=== PATIENT | male | born 1965 | race Caucasian/White ===

== ENCOUNTER 2016-05-31 14:05 | Inpatient (IN) | payer MEDICAID ==
[2016-05-31] MEDS ORDERED: Thiamine IV* 100 MG, Folic Acid IV* 1 MG, Multiple Vitamin IV ADULT* 10 ML in NS 0.9% 1... IV ONE (15:40)
[2016-05-31] MEDS ORDERED: NS 0.9% 1000 ML* 1,000 ML IV ONE (15:41)
[2016-05-31 15:56] LABS: Hematocrit 37 % (42-52); Hemoglobin 12.8 g/dl (14.0-18.0); Mean Corpuscular HGB Conc 34 g/dl (31-36); Mean Corpuscular Hemoglobin 30 pg (27-31); Mean Corpuscular Volume 88 fL (80-94); Mean Platelet Volume 8 um3 (7.4-10.4); Red Blood Count 4.26 10^6/ul (4.0-5.4); Red Cell Distribution Width 14 % (10.5-15); White Blood Count 10.2 10^3/ul (3.5-10.8)
[2016-05-31 16:08] LABS: ALT 48 U/L (7-52); AST 81 U/L (13-39); Albumin 3.8 g/dL (3.2-5.2); Alkaline Phosphatase 36 U/L (34-104); Anion Gap 7 mmol/L (2-11); BUN/Creatinine Ratio 16.7 (8-20); Blood Urea Nitrogen 13 mg/dL (6-24); CO2 Carbon Dioxide 26 mmol/L (22-32); Calcium 8.5 mg/dL (8.6-10.3); Chloride 103 mmol/L (101-111); EGFR African American 136.6 (>60); EGFR Non-African American 106.2 (>60); Globulin 2.4 g/dL (2-4); Glucose 99 mg/dL (70-100); Potassium 3.8 mmol/L (3.5-5.0); Sodium 136 mmol/L (133-145); Total Protein 6.2 g/dL (6.4-8.9)
[2016-05-31 16:33] LABS: Acetaminophen < 15 mcg/mL; Alcohol 150 mg/dL (<10); Salicylate < 2.50 mg/dL (<30)
[2016-05-31 16:44] LABS: TSH (Thyroid Stimulating Horm) 0.28 mcIU/mL (0.34-5.60)
[2016-05-31 18:26] LABS: Urine Bacteria Absent (Absent); Urine Bilirubin Negative (Negative); Urine Glucose Negative (Negative); Urine Nitrite Negative (Negative); Urine Sperm Present (Absent)
[2016-05-31 18:33] LABS: Benzodiazepine Urine Screen None Detected (None Detect)
--- NOTE | 2016-05-31 19:48 | ED ---
Ifox Timothy, scribed for Sheldon Vega MD on 05/31/16 at 1909 . Progress - Progress Note Progress Note: Kishore Ellison is a 50 yo male presenting to [facility] with AMS brought in by the police for destruction of property. He was signed out from Dr. Barnes. Per Dr. Barnes, Pt has not been making sense when evaluated. Course/Dx - Course Course Of Treatment: Kishore Ellison is a 50 yo male presenting to [facility] with AMS brought in by the police for destruction of property. He was signed out from Dr. Barnes. He is medically clear for [facility] at 2010. Following the results of his mental health unit evaluation, [place] [facility] [place] - Diagnoses Provider Diagnoses: Alcohol intoxication The documentation as recorded by the scribefox Timothy accurately reflects the service I personally performed and the decisions made by me, Sheldon Vega MD.
[2016-05-31] MEDS ORDERED: Haloperidol TAB* 5 MG ONE (23:53)
[2016-05-31] MEDS ORDERED: QUEtiapine XR TAB* 300 MG ONE (23:53)
[2016-05-31] MEDS ORDERED: Lithium Carbonate TAB* 300 MG ONE (23:53)
[2016-05-31] MEDS ORDERED: Haloperidol TAB* 5 MG PO ONE (23:57)
[2016-05-31] MEDS ORDERED: QUEtiapine XR TAB* 300 MG PO ONE (23:57)
[2016-05-31] MEDS ORDERED: Lithium Carbonate TAB* 300 MG PO ONE (23:57)
[2016-06-01] MEDS ORDERED: Mouth Piece, Nicotine* 1 EACH CARTRIDGE ONE
[2016-06-01] MEDS ORDERED: Nicotine Inhaler* 10 MG AMP ONE (00:02)
[2016-06-01] MEDS ORDERED: LORazepam INJ* 2 MG/ML 1 ML VIAL IM ONE (00:12)
[2016-06-01] MEDS ORDERED: diPHENhydraMINE IV* 50 MG/ML 1 ml VIAL (BENADRYL) IM ONE (00:12)
[2016-06-01] MEDS ORDERED: Haloperidol INJ IV/IM* 5 MG/ML AMP IM ONE (00:12)
[2016-06-01] MEDS ORDERED: diPHENhydraMINE IV* 50 MG/ML 1 ml VIAL (BENADRYL) ONE ×2 (00:14→13:26)
[2016-06-01] MEDS ORDERED: LORazepam INJ* 2 MG/ML 1 ML VIAL ONE ×2 (00:14→13:26)
[2016-06-01] MEDS ORDERED: Haloperidol INJ IV/IM* 5 MG/ML AMP ONE ×2 (00:15→13:27)
[2016-06-01] MEDS ORDERED: Mouth Piece, Nicotine* 1 EACH CARTRIDGE INH SCH (05:39)
[2016-06-01] MEDS ORDERED: Al Hydrox/Mg Hydrox/Simet LIQ* 30 ML UDC PO PRN (05:39)
[2016-06-01] MEDS ORDERED: Acetaminophen TAB* 325 MG PO PRN (05:39)
[2016-06-01] MEDS: Vitamin THERAPEUTIC TAB PO SCH (09:16)
[2016-06-01] MEDS: Lithium Carbonate TAB* 300 MG PO SCH ×2 (09:16→21:49)
[2016-06-01] MEDS: QUEtiapine XR TAB* 300 MG PO SCH (21:49)
--- NOTE | 2016-06-01 22:10 | HP ---
PSYCHIATRIC HISTORY AND PHYSICAL: DATE OF ADMISSION: 06/01/16 CHIEF COMPLAINT: "I see you looking at me, I'm the wizard, I'm the devil." HISTORY OF PRESENT ILLNESS: The patient is a 50-year-old single white male with a history of bipolar disorder and apparent schizophrenia who was brought to the emergency room by the [place] [employer] on the 9.41 status after allegedly trashing his apartment here in [place]. He was intoxicated with a blood alcohol content of 150 and was uncooperative and not answering questions in the emergency room. He was noted to be disorganized, attempting to drink his own urine and speaking in an affected Mosotho accent. He was unwilling or unable to provide history and could not give any collateral contact. Because of his obvious disorganization and psychosis, he was transferred to the behavior health science unit where I am seeing him this afternoon for psychiatric intake. It is notable that prior to my arrival in his room, our recreational therapist entered to evaluate him and he became hostile and lunged at her. Several staff members had to intervene as the patient appeared that he was ready to physically assault this clinician. As I entered his room, he is back in his bed under his covers but as I begin the interview process, he quickly tears the covers off and lunges at me resulting in intervention by several security guards that had escorted me to his room. The patient is screaming non-sequitur statements. At one point, he uses his blanket the way a matador would do, urging the security guards to kenney him as though they were bulls in a bullfight. Later he puts his fingers on his head to make himself appear to be devil and start speaking in a demonic voice that he has been here before and he knows all of us. Stat medications were required and along with the presence of several staff members and security, he did allow us to administer IM Haldol, Benadryl, and Ativan and at this point he has fallen back asleep in his room and is not arousable. The only source of collateral information unfortunately was an old history and physical done in December [address] Lili Elise. There it indicates that his diagnosis is bipolar disorder and that he was stabilized on a combination of lithium and Seroquel XR. PAST PSYCHIATRIC HISTORY: Past psychiatric history again is from an old discharge summary and this indicates that his first hospitalization was at the [facility] and that he has also had past psychiatric admissions at [facility], the [facility], and [facility]. Further hospitalization was at the [facility] prior to that facility closing and that hospitalization was in 1988. He has received followup treatment in the community at [facility] in the past, but it is unclear whether he currently receives treatment from them. The patient has been stabilized in the past on lithium and Seroquel. SUBSTANCE ABUSE HISTORY: The patient indicates that he used to drink heavily but quit, but this is not consistent with the 150 blood alcohol content than he had on presentation. There is some indication from the notes that he smokes cannabis and his urine drug screen is positive for cannabis. There are also notes from the ER indicating that he made a statement to the affect that he had used LSD recently. PAST MEDICAL HISTORY: Medical history appears to be noncontributory. CURRENT MEDICATIONS: He is not on any current medications. FAMILY HISTORY: The patient states that he has several family members with mental illness, but he cannot give any details. SOCIAL HISTORY: The patient states that he is a high school graduate with some college whose college was interrupted by his first psychiatric admission. 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 He has been in retirement before for crimes related to drugs, but the rest of his legal history is uncertain. REVIEW OF SYSTEMS: Unable to be obtained at this point, because the patient is simply uncooperative. Similarly a physical examination could not be performed, although I am reading the emergency room document that indicates that the patient was medically cleared for treatment on our floor. PHYSICAL EXAMINATION VITAL SIGNS: Noted to be stable with the blood pressure of 110/49, heart rate 85, temperature 98.3 degrees Fahrenheit, oxygen saturation 99% on room air, respiratory rate is 16 breaths per minute. MENTAL STATUS EXAM: The patient is a middle-aged white male with stringy unkempt disheveled hair, dressed in patient scrubs. He is wiry, psychomotor agitated. Speech is hyperverbal, over productive with a fake Mosotho accent at times. Mood is agitated with a labile affect. Thought process is disorganized. Thought content is significant for paranoid and persecutory delusions. He denies suicidal or homicidal ideations. He denies auditory or visual hallucinations, but does appear to be responding to internal stimuli. Insight and judgment are clearly impaired given his violent behavior. Cognitively, he is awake and alert, with what would appear to be a low-average intellect. DIAGNOSES: Grapevine I: Unspecified psychotic disorder, rule out bipolar kenisha, severe with psychotic features versus schizoaffective bipolar type, alcohol use disorder. Grapevine II: Deferred. Grapevine III: None. Grapevine IV: Severe housing stressors. Grapevine V: At this time is 20. IMPRESSION: The patient is a 50-year-old single white male with a history of bipolar disorder and psychosis as well as alcohol abuse, who arrives intoxicated to the emergency room with blood alcohol content of 150 who continues to be psychotic, agitated, and violent despite his current sobriety. We will start him on a trial of lithium 300 mg twice daily and Seroquel XR 300 mg at night as this is the medication regimen that he has done well on in the past. We can easily use Haldol 5 mg doses for agitation and anxiety. PLAN: The patient is admitted to the adult behavioral health unit where he is placed on q.15 minute checks for his and others' safety. I would recommend that clinicians be careful of being alone in his presence and we may have to have additional security for the time being until his medications take affect. We will reinitiate lithium and Seroquel and try to get further collateral information, a likely source of this perhaps would be the [facility]. [id number]/[facility] #: [id number] [facility]
[2016-06-01] MEDS: Haloperidol TAB* 5 MG PO PRN (23:21)
[2016-06-02] MEDS: Lithium Carbonate TAB* 300 MG PO SCH ×2 (09:37→21:18)
[2016-06-02] MEDS: Vitamin THERAPEUTIC TAB PO SCH (09:41)
[2016-06-02] MEDS: Haloperidol TAB* 5 MG PO PRN (09:41)
[2016-06-02] MEDS: Nicotine Inhaler* 10 MG AMP INH PRN ×2 (10:01→21:18)
--- NOTE | 2016-06-02 10:43 | ED ---
Vee Starr Matthew, scribed for Reggie Barnes MD on 05/31/16 at 1427 . Altered Mental Status - HPI Summary HPI Summary: A 50 y/o male presents to the ED by police because he was found damaging property. He was violent toward the police officers. Currently, the patient is not making sense and AMS at this point. He seems to be under the influence of drugs or alcohol. Right now he is agitated and not cooperating. The patient is unresponsive to questions. - History Of Current Complaint Chief Complaint: EDMentalHealth Stated Complaint: 941 Time Seen by Provider: 05/31/16 14:17 Hx Obtained From: Patient Onset/Duration: Still Present Timing: Constant Severity Initially: Moderate Severity Currently: Moderate Aggravating Factor(s): Unknown Alleviating Factor(s): Unknown - Allergies/Home Medications Home Medications: Home Medications Unobtainable [Unobtainable] 05/31/16 [History Confirmed 05/31/16] PMH/Surg Hx/FS Hx/Imm Hx Psychiatric History: Reports: Hx Schizophrenia, Hx Bipolar Disorder, Other Psychiatric Issues/Disorders - Hx of psychosis Infectious Disease History: Denies: Traveled Outside the [place] in Last 30 Days - Family History Known Family History: Positive: Unknown - The patient is unresponsive to questions - Social History Alcohol Use: The patient has an alcohol Hx Hx Substance Use: Yes Substance Use Type: Reports: Marijuana Smoking Status (MU): Unknown if Ever Smoked Review of Systems Psychological: Other - AMS All Other Systems Reviewed And Are Negative: No - Comments Additional Review of Systems Comments: A complete ROS is unable to be obtained, because the patient is unresponsive to questions. Physical Exam - Summary Physical Exam Summary: Vital signs: reviewed General: Patient is well develop male who seems to under the influence of alcohol ans possible some recreational drugs. He has episode of agitations and aggressiveness. He seems to be a treat and danger for himself and staff members. HEENT: within normal limits Lungs: CTA B/L CVS: S1 & S2 present. No murmurs appreciated. ABDOMEN: Soft, non-tender. No signs of distention. No rebound no guarding, and no masses palpated. Bowel sounds are normal. EXTREMITIES: FROM in all major joints, no edema, no cyanosis or clubbing. NEURO: Alert agitated. SKIN: Dry and warm Triage Information Reviewed: Yes Vital Signs On Initial Exam: Initial Vitals BP 109/81 05/31/16 14:56 Vital Signs Reviewed: Yes Diagnostics - Vital Signs Vital Signs Temp Pulse Resp BP Pulse Ox 05/31/16 16:30 73 14 111/68 100 05/31/16 16:00 74 13 101/58 100 05/31/16 15:36 76 13 104/65 95 05/31/16 15:30 76 15 101/63 94 05/31/16 15:01 97.8 F 72 16 104/63 95 05/31/16 15:00 70 104/63 93 05/31/16 14:57 85 93 05/31/16 14:56 109/81 - Laboratory Lab Results: Lab Results 05/31/16 05/31/16 05/31/16 Range/Units 15:40 15:40 18:03 WBC 10.2 (3.5-10.8) 10^3/ul RBC 4.26 (4.0-5.4) 10^6/ul Hgb 12.8 L (14.0-18.0) g/dl Hct 37 L (42-52) % MCV 88 (80-94) fL MCH 30 (27-31) pg MCHC 34 (31-36) g/dl RDW 14 (10.5-15) % Plt Count 196 (150-450) 10^3/ul MPV 8 (7.4-10.4) um3 Neut % (Auto) 68.9 (38-83) % Lymph % (Auto) 22.7 L (25-47) % [place]anan % (Auto) 6.8 (1-9) % Eos % (Auto) 1.2 (0-6) % Baso % (Auto) 0.4 (0-2) % Absolute Neuts (auto) 7.0 (1.5-7.7) 10^3/ul Absolute Lymphs (auto) 2.3 (1.0-4.8) 10^3/ul Absolute Monos (auto) 0.7 (0-0.8) 10^3/ul Absolute Eos (auto) 0.1 (0-0.6) 10^3/ul Absolute Basos (auto) 0 (0-0.2) 10^3/ul Absolute Nucleated RBC 0 10^3/ul Nucleated RBC % 0 Sodium 136 (133-145) mmol/L Potassium 3.8 (3.5-5.0) mmol/L Chloride 103 (101-111) mmol/L Carbon Dioxide 26 (22-32) mmol/L Anion Gap 7 (2-11) mmol/L BUN 13 (6-24) mg/dL Creatinine 0.78 (0.67-1.17) mg/dL Est GFR ( Amer) 136.6 (>60) Est GFR (Non-Af Amer) 106.2 (>60) BUN/Creatinine Ratio 16.7 (8-20) Glucose 99 (70-100) mg/dL Calcium 8.5 L (8.6-10.3) mg/dL Total Bilirubin 0.50 (0.2-1.0) mg/dL AST 81 H (13-39) U/L ALT 48 (7-52) U/L Alkaline Phosphatase 36 (34-104) U/L Total Protein 6.2 L (6.4-8.9) g/dL Albumin 3.8 (3.2-5.2) g/dL Globulin 2.4 (2-4) g/dL Albumin/Globulin Ratio 1.6 (1-3) TSH 0.28 L (0.34-5.60) mcIU/mL Urine Color Yellow Urine Appearance Clear Urine pH 6.0 (5-9) Ur Specific [place] 1.006 L (1.010-1.030) Urine Protein Negative (Negative) Urine Ketones Negative (Negative) Urine Blood 1+ H (Negative) Urine Nitrate Negative (Negative) Urine Bilirubin Negative (Negative) Urine Urobilinogen Negative (Negative) Ur Leukocyte Esterase Negative (Negative) Urine WBC (Auto) Trace(0-5/hpf) (Absent) Urine RBC (Auto) 1+(3-5/hpf) H (Absent) Urine Bacteria Absent (Absent) Urine Sperm Present H (Absent) Urine Glucose Negative (Negative) Salicylates < 2.50 (<30) mg/dL Urine Opiates Screen (None Detect) Acetaminophen < 15 mcg/mL Ur Barbiturates Screen (None Detect) Ur Phencyclidine Scrn (None Detect) Ur Amphetamines Screen (None Detect) U Benzodiazepines Scrn (None Detect) Urine Cocaine Screen (None Detect) U Cannabinoids Screen (None Detect) Serum Alcohol 150 H (<10) mg/dL 05/31/16 Range/Units 18:03 WBC (3.5-10.8) 10^3/ul RBC (4.0-5.4) 10^6/ul Hgb (14.0-18.0) g/dl Hct (42-52) % MCV (80-94) fL MCH (27-31) pg MCHC (31-36) g/dl RDW (10.5-15) % Plt Count (150-450) 10^3/ul MPV (7.4-10.4) um3 Neut % (Auto) (38-83) % Lymph % (Auto) (25-47) % [place] % (Auto) (1-9) % Eos % (Auto) (0-6) % Baso % (Auto) (0-2) % Absolute Neuts (auto) (1.5-7.7) 10^3/ul Absolute Lymphs (auto) (1.0-4.8) 10^3/ul Absolute Monos (auto) (0-0.8) 10^3/ul Absolute Eos (auto) (0-0.6) 10^3/ul Absolute Basos (auto) (0-0.2) 10^3/ul Absolute Nucleated RBC 10^3/ul Nucleated RBC % Sodium (133-145) mmol/L Potassium (3.5-5.0) mmol/L Chloride (101-111) mmol/L Carbon Dioxide (22-32) mmol/L Anion Gap (2-11) mmol/L BUN (6-24) mg/dL Creatinine (0.67-1.17) mg/dL Est GFR ( Amer) (>60) Est GFR (Non-Af Amer) (>60) BUN/Creatinine Ratio (8-20) Glucose (70-100) mg/dL Calcium (8.6-10.3) mg/dL Total Bilirubin (0.2-1.0) mg/dL AST (13-39) U/L ALT (7-52) U/L Alkaline Phosphatase (34-104) U/L Total Protein (6.4-8.9) g/dL Albumin (3.2-5.2) g/dL Globulin (2-4) g/dL Albumin/Globulin Ratio (1-3) TSH (0.34-5.60) mcIU/mL Urine Color Urine Appearance Urine pH (5-9) Ur Specific [place] (1.010-1.030) Urine Protein (Negative) Urine Ketones (Negative) Urine Blood (Negative) Urine Nitrate (Negative) Urine Bilirubin (Negative) Urine Urobilinogen (Negative) Ur Leukocyte Esterase (Negative) Urine WBC (Auto) (Absent) Urine RBC (Auto) (Absent) Urine Bacteria (Absent) Urine Sperm (Absent) Urine Glucose (Negative) Salicylates (<30) mg/dL Urine Opiates Screen None detected (None Detect) Acetaminophen mcg/mL Ur Barbiturates Screen None detected (None Detect) Ur Phencyclidine Scrn None detected (None Detect) Ur Amphetamines Screen None detected (None Detect) U Benzodiazepines Scrn None detected (None Detect) Urine Cocaine Screen None detected (None Detect) U Cannabinoids Screen Presumptive positive H (None Detect) Serum Alcohol (<10) mg/dL Result Diagrams: 05/31/16 15:40 05/31/16 15:40 Lab Statement: Any lab studies that have been ordered have been reviewed, and results considered in the medical decision making process. Altered Mental Statu Course/Dx - Course Assessment/Plan: A 50 y/o male presents to the ED by police because he was found damaging property. He was violent toward the police officers. Currently, the patient is not making sense and AMS at this point. He seems to be under the influence of drugs or alcohol. Right now he is agitated and not cooperating. The patient is unresponsive to questions. Blood work WNL except for mild anemia. Potassium of 8.5, TSH of 0.28. Alcohol level of 150. The patient became very aggressive and a threat for himself and the staff therefore the patient was given Benadryl, Haldol and Ativan. The patient was also placed in restraints since he was very agitated. I gave IV fluids for this patient in a banana bag since the patient has a Hx of alcoholism. At this point, the patient is resting comfortable , maintaining a good airway, and await for soberness. Fall migdalia were given. The patient is still on the monitor and vital signs taken every hour. The patient will be signed out to Dr. Vgea for further assessment and treatment. The patient is awaiting soberness, reassessment, and will need a MHE. It appears the patient has a Hx of psychosis. - Diagnoses Differential Diagnosis/HQI/PQRI: Medication Reaction, Metabolic Disorder, Overdose, Other - Alcohol intoxication, polysubstsmce abuse Discharge Diagnoses: Alcohol intoxication Discharge - Discharge Plan Condition: Stable Disposition: OTHER Discharge Disposition Comment: The patient is signed out to Dr. Vega pending MHE. Referrals: No Primary Care Phys,NOPCP [Primary Care Provider] - The documentation as recorded by the Vee vizcaino Matthew accurately reflects the service I personally performed and the decisions made by me, Reggie Barnes MD.
[2016-06-02] MEDS: QUEtiapine XR TAB* 300 MG PO SCH (21:18)
[2016-06-03] MEDS: Lithium Carbonate TAB* 300 MG PO SCH ×2 (08:54→20:50)
[2016-06-03] MEDS: Vitamin THERAPEUTIC TAB PO SCH (08:54)
[2016-06-03] MEDS: Nicotine Inhaler* 10 MG AMP INH PRN ×6 (08:55→22:43)
--- NOTE | 2016-06-03 12:49 | PN ---
Subjective - Subjective Subjective: I had the opportunity to see Mr. Rose today. When asked clinical interview questions, he turned around and asked me the question- e.g.,when I asked him the question "how is your mood?" He responded with "how is your mood? " He did this with several questions. He did acknowledge good sleep, however. Nursing staff report that he is acting bizarre on the unit, but is medication compliant. Denies A/V hallucinations when questioned, re: same, but staff report that at times, he appears to be responding to internal stimuli. Case discussed with Dr. Suarez Objective - Appearance Hygiene: Normal - disheveled - Behavior Psychomotor Activities: Normal Exhibits Abnormal Movement: Yes - Attitude and Relatedness Attitude and Relatedness: Cooperative Eye Contact: Fair - Speech Quality: Unpressured Latencies: Normal Quantity: Copious - Mood Patient's Decription of Mood: "Great" - Affect Observed Affect: Labile Affect Consistent with: Euthymia - Thought Process Patient's Thought Process: Disorganized Thought Content: No Passive Wish, No Suicidal Planning, No Homicidal Ideation, No Paranoid Ideation - Level of Consciousness Level of Consciousness: Alert Orientation: Yes Orientated to Time, Yes Orientated to Place, Yes Orientated to Person - Impulse Control Impulse Control: Impaired - Insight and Judgement Insight and Judgement: Poor Plan - Plan Treatment Plan: Name: ZOE ROSE Birthdate: 1965 [id number] Medications: Current Medications Acetaminophen (Tylenol Tab*) 650 mg PO Q4H PRN PRN Reason: PAIN or TEMP > 101 F Al Hydrox/Mg Hydrox/Simethicone (Maalox Plus*) 30 ml PO Q4H PRN PRN Reason: INDIGESTION Device (Nicotine Mouth Piece*) 1 each INH .[facility] Last Admin: 06/02/16 10:01 Dose: 1 each Haloperidol (Haldol Tab*) 5 mg PO Q6H PRN PRN Reason: AGITATION Last Admin: 06/02/16 09:41 Dose: 5 mg [place] Carbonate ([place] Carbonate Tab*) 600 mg PO BEDTIME [facility] Last Admin: 06/02/16 21:18 Dose: 600 mg [place] Carbonate ([place] Carbonate Tab*) 300 mg PO QAM [facility] Last Admin: 06/03/16 08:54 Dose: 300 mg Multivitamins (Theragran Tab*) 1 tab PO DAILY [facility] Last Admin: 06/03/16 08:54 Dose: 1 tab Nicotine (Nicotine Inhaler*) 10 mg INH Q2H PRN PRN Reason: CRAVING Last Admin: 06/03/16 11:25 Dose: 10 mg Quetiapine Fumarate (Seroquel Xr Tab*) 300 mg PO BEDTIME [facility] Last Admin: 06/02/16 21:18 Dose: 300 mg
[2016-06-03] MEDS: QUEtiapine XR TAB* 300 MG PO SCH (20:50)
[2016-06-04] MEDS: Nicotine Inhaler* 10 MG AMP INH PRN ×5 (07:28→18:06)
[2016-06-04] MEDS: Lithium Carbonate TAB* 300 MG PO SCH ×2 (09:00→20:32)
[2016-06-04] MEDS: Vitamin THERAPEUTIC TAB PO SCH (09:00)
--- NOTE | 2016-06-04 12:15 | PN ---
[facility]: Group Therapy Note - Service Type Service Type: 33841 Group Psychotherapy - Cognitive Behavioral Group Therapy ( CBT):Patient presented in CBT programming as disorganized and disruptive in discussion and needed repeated redirection to attend to presented materials.
--- NOTE | 2016-06-04 17:56 | PN ---
Subjective - Subjective Service Type: 10200 Hosp care 15 min low complexity Subjective: Mr Rose reports doing better having resumed lithium. He denies any active psychiatric symptoms. He continues to present with and adopted accent. Objective - Appearance Appearance: Well Developed/Nourished Dysmorphic Features: No Hygiene: Normal Grooming: Fairly Well Kept - Behavior Psychomotor Activities: Normal Exhibits Abnormal Movement: No - Attitude and Relatedness Attitude and Relatedness: Superficially Cooperative Eye Contact: Good - Speech Quality: Unpressured Latencies: Normal Quantity: Appropriate - Mood Patient's Decription of Mood: "Elated in a subdued sort of way" - Affect Observed Affect: Constricted Affect Consistent with: Euthymia - Thought Process Patient's Thought Process: Coherent, Goal Directed Thought Content: No Passive Wish, No Suicidal Planning - "Of course not." , No Homicidal Ideation - "Of course not.", No Paranoid Ideation - "Of course not." - Sensorium Experiencing Hallucinations: No, Sensorium is Clear Type of Hallucinations: Visual: No, Auditory: No, Command: No - Level of Consciousness Level of Consciousness: Alert Orientation: Yes Intact, Yes Orientated to Time, Yes Orientated to Place, Yes Orientated to Person - Impulse Control Impulse Control: Intact - Insight and Judgement Insight and Judgement: Poor - Group Participation Particating in Group Activities: Yes Group Participation Comments: a few - Medication Management Medication Management Adherence: Yes Assessment - Assessment Merits Inpatient Hospitalization: For Stabilization, For Ongoing Evaluation, Consolidate Improvements, For Discharge Planning, Pending Safe DC Plan Inpatient DSM-IV Dx: Unspecified psychotic disorder. Rule out Bipolar Disorder , Manic with psychotic features. Rule out Schizoaffective Disorder, bipolar type. Alcohol use disorder Clinical Impression: Zoe Rose is a 50 year-old man admitted for psychosis with out of control behavior in the community, trashing his apartment. He remained psychotic and assaultive on the unit, but in recent days has been in behavioral control and med compliant. We will continue to monitor for sufficient remission of psychosis to be safe for discharge. Plan - Plan Treatment Plan: Name: ZOE ROSE Birthdate: 1965 [id number] Continue current meds. Monitor MS and safety. Encourage groups and milieu. Gather collateral. Medications: Current Medications Acetaminophen (Tylenol Tab*) 650 mg PO Q4H PRN PRN Reason: PAIN or TEMP > 101 F Al Hydrox/Mg Hydrox/Simethicone (Maalox Plus*) 30 ml PO Q4H PRN PRN Reason: INDIGESTION Device (Nicotine Mouth Piece*) 1 each INH .[facility] Last Admin: 06/02/16 10:01 Dose: 1 each Haloperidol (Haldol Tab*) 5 mg PO Q6H PRN PRN Reason: AGITATION Last Admin: 06/02/16 09:41 Dose: 5 mg [place] Carbonate ([place] Carbonate Tab*) 600 mg PO BEDTIME [facility] Last Admin: 06/03/16 20:50 Dose: 600 mg [place] Carbonate ([place] Carbonate Tab*) 300 mg PO QAM [facility] Last Admin: 06/04/16 09:00 Dose: 300 mg Multivitamins (Theragran Tab*) 1 tab PO DAILY [facility] Last Admin: 06/04/16 09:00 Dose: 1 tab Nicotine (Nicotine Inhaler*) 10 mg INH Q2H PRN PRN Reason: CRAVING Last Admin: 06/04/16 14:42 Dose: 10 mg Quetiapine Fumarate (Seroquel Xr Tab*) 300 mg PO BEDTIME [facility] Last Admin: 06/03/16 20:50 Dose: 300 mg - Discharge Plan Discharge Plan: Outpatient Follow Up
[2016-06-04] MEDS: QUEtiapine XR TAB* 300 MG PO SCH (20:32)
[2016-06-05] MEDS: Nicotine Inhaler* 10 MG AMP INH PRN ×5 (06:14→23:40)
[2016-06-05] MEDS: Lithium Carbonate TAB* 300 MG PO SCH ×2 (09:06→20:21)
[2016-06-05] MEDS: Vitamin THERAPEUTIC TAB PO SCH (09:06)
--- NOTE | 2016-06-05 13:24 | PN ---
Subjective - Subjective Service Type: 65577 Hosp care 15 min low complexity Subjective: Zoe continues to report full remission of all psychiatric symptoms and has no physical complaints. Objective - Appearance Appearance: Well Developed/Nourished Dysmorphic Features: No Hygiene: Normal Grooming: Fairly Well Kept - Behavior Psychomotor Activities: Normal Exhibits Abnormal Movement: No - Attitude and Relatedness Attitude and Relatedness: Cooperative Eye Contact: Good - Speech Quality: Unpressured Latencies: Normal Quantity: Appropriate - Mood Patient's Decription of Mood: "Excellent" - Affect Observed Affect: Fair Affect Consistent with: Euthymia - Thought Process Patient's Thought Process: Coherent, Goal Directed Thought Content: No Passive Wish, No Suicidal Planning, No Homicidal Ideation, No Paranoid Ideation - Sensorium Experiencing Hallucinations: No, Sensorium is Clear Type of Hallucinations: Visual: No, Auditory: No, Command: No - Level of Consciousness Level of Consciousness: Alert Orientation: Yes Intact, Yes Orientated to Time, Yes Orientated to Place, Yes Orientated to Person - Impulse Control Impulse Control: Intact - Insight and Judgement Insight and Judgement: Fair - Group Participation Particating in Group Activities: Yes - Medication Management Medication Management Adherence: Yes Assessment - Assessment Merits Inpatient Hospitalization: For Stabilization, For Ongoing Evaluation, For Discharge Planning Inpatient DSM-IV Dx: Unspecified psychotic disorder. Rule out Bipolar Disorder , Manic with psychotic features. Rule out Schizoaffective Disorder, bipolar type. Alcohol use disorder Clinical Impression: Assumed care day , 17: Zoe Rose is a 50 year-old man admitted for psychosis with out of control behavior in the community, trashing his apartment. He remained psychotic and assaultive on the unit, but in recent days has been in behavioral control and med compliant. We will continue to monitor for sufficient remission of psychosis to be safe for discharge. Day 06.05.17: Zoe continues to present in a stylized way, but less so. He continues to deny any active psychiatric symptoms. He agrees to blood drqw tomorrow to check lithium level. Plan - Plan Treatment Plan: Name: ZOE ROSE Birthdate: 1965 [id number] Continue current meds. Check Li+, Cr, TSH tomorrow morning. Monitor MS and safety. Encourage groups and milieu. Gather collateral. Medications: Current Medications Acetaminophen (Tylenol Tab*) 650 mg PO Q4H PRN PRN Reason: PAIN or TEMP > 101 F Al Hydrox/Mg Hydrox/Simethicone (Maalox Plus*) 30 ml PO Q4H PRN PRN Reason: INDIGESTION Device (Nicotine Mouth Piece*) 1 each INH .[facility] Last Admin: 06/02/16 10:01 Dose: 1 each Haloperidol (Haldol Tab*) 5 mg PO Q6H PRN PRN Reason: AGITATION Last Admin: 06/02/16 09:41 Dose: 5 mg [place] Carbonate ([place] Carbonate Tab*) 600 mg PO BEDTIME [facility] Last Admin: 06/04/16 20:32 Dose: 600 mg [place] Carbonate ([place] Carbonate Tab*) 300 mg PO QAM [facility] Last Admin: 06/05/16 09:06 Dose: 300 mg Multivitamins (Theragran Tab*) 1 tab PO DAILY [facility] Last Admin: 06/05/16 09:06 Dose: 1 tab Nicotine (Nicotine Inhaler*) 10 mg INH Q2H PRN PRN Reason: CRAVING Last Admin: 06/05/16 09:05 Dose: 10 mg Quetiapine Fumarate (Seroquel Xr Tab*) 300 mg PO BEDTIME [facility] Last Admin: 06/04/16 20:32 Dose: 300 mg - Discharge Plan Discharge Plan: Outpatient Follow Up
[2016-06-05] MEDS: QUEtiapine XR TAB* 300 MG PO SCH (20:21)
[2016-06-06] MEDS: Nicotine Inhaler* 10 MG AMP INH PRN ×8 (02:30→21:02)
[2016-06-06] MEDS: Vitamin THERAPEUTIC TAB PO SCH (09:08)
[2016-06-06] MEDS: Lithium Carbonate TAB* 300 MG PO SCH ×2 (09:08→20:26)
--- NOTE | 2016-06-06 11:46 | PN ---
MHU: Group Therapy Note - Service Type Service Type: 12249 Group Psychotherapy - Cognitive Behavioral Group Therapy ( CBT):Patient presented in CBT programming as disorganized and disruptive in discussion and needed repeated redirection to attend to presented materials.
--- NOTE | 2016-06-06 12:51 | PN ---
Subjective - Subjective Service Type: 04136 Hosp care 15 min low complexity Subjective: Zoe acknowledged today that he scares people with the way he acts, responding to my observation that this would be an indication that he could benefit from acting on compassion toward these people with his own observation that he has a 'slurry' of emotions preventing him from acting appropriately on what he feels is adequate compassion. We have not been able to contact any collateral sources , for example his mother, and it may be, per his report, that he has scared them into getting new phone numbers that they have not shared with him. Refused labwork today rudely telling staff to 'f... off'. Objective - Appearance Appearance: Well Developed/Nourished Dysmorphic Features: No Hygiene: Normal Grooming: Fairly Well Kept - Behavior Psychomotor Activities: Normal Exhibits Abnormal Movement: No - Attitude and Relatedness Attitude and Relatedness: Superficially Cooperative Eye Contact: Good - Speech Quality: Unpressured Latencies: Normal Quantity: Appropriate - Mood Patient's Decription of Mood: "Pretty good" - Affect Observed Affect: Fair Affect Consistent with: Euthymia - but odd - Thought Process Patient's Thought Process: Coherent, Goal Directed, Circumstantial Thought Content: No Passive Wish, No Suicidal Planning, No Homicidal Ideation, No Paranoid Ideation - Sensorium Experiencing Hallucinations: No, Sensorium is Clear Type of Hallucinations: Visual: No, Auditory: No, Command: No - Level of Consciousness Level of Consciousness: Alert Orientation: Yes Intact, Yes Orientated to Time, Yes Orientated to Place, Yes Orientated to Person - Impulse Control Impulse Control: Tenuous - Insight and Judgement Insight and Judgement: Poor - Group Participation Particating in Group Activities: Yes Group Participation Comments: noted by Brianna as inappropriate in her education group - Medication Management Medication Management Adherence: Yes Assessment - Assessment Merits Inpatient Hospitalization: For Stabilization, For Ongoing Evaluation, For Discharge Planning Inpatient DSM-IV Dx: Unspecified psychotic disorder. Rule out Bipolar Disorder , Manic with psychotic features. Rule out Schizoaffective Disorder, bipolar type. Alcohol use disorder Clinical Impression: [facility] care day 4, 17: Zoe Rose is a 50 year-old man admitted for psychosis with out of control behavior in the community, trashing his apartment. He remained psychotic and assaultive on the unit, but in recent days has been in behavioral control and med compliant. We will continue to monitor for sufficient remission of psychosis to be safe for discharge. Day 17: Zoe continues to present in a stylized way, but less so. He continues to deny any active psychiatric symptoms. He agrees to blood drqw tomorrow to check lithium level. Day 06.06.16: Refused blood draw this morning. Continues to deny any active psychiatric symptoms, but with odd presentation raising concern about reliability of reports. Unable to contact mother or other collateral sources. Plan - Plan Treatment Plan: Name: ZOE ROSE Birthdate: 1965 [id number] Continue current meds. Check Li+, Cr, TSH tomorrow morning. Monitor MS and safety. Encourage groups and milieu. Gather collateral. Medications: Current Medications Acetaminophen (Tylenol Tab*) 650 mg PO Q4H PRN PRN Reason: PAIN or TEMP > 101 F Al Hydrox/Mg Hydrox/Simethicone (Maalox Plus*) 30 ml PO Q4H PRN PRN Reason: INDIGESTION Device (Nicotine Mouth Piece*) 1 each INH [facility] Last Admin: 06/02/16 10:01 Dose: 1 each Haloperidol (Haldol Tab*) 5 mg PO Q6H PRN PRN Reason: AGITATION Last Admin: 06/02/16 09:41 Dose: 5 mg [place] Carbonate ([place] Carbonate Tab*) 600 mg PO BEDTIME [facility] Last Admin: 06/05/16 20:21 Dose: 600 mg [place] Carbonate ([place] Carbonate Tab*) 300 mg PO QAM [facility] Last Admin: 06/06/16 09:08 Dose: 300 mg Multivitamins (Theragran Tab*) 1 tab PO DAILY [facility] Last Admin: 06/06/16 09:08 Dose: 1 tab Nicotine (Nicotine Inhaler*) 10 mg INH Q2H PRN PRN Reason: CRAVING Last Admin: 06/06/16 12:02 Dose: 10 mg Quetiapine Fumarate (Seroquel Xr Tab*) 300 mg PO BEDTIME [facility] Last Admin: 06/05/16 20:21 Dose: 300 mg - Discharge Plan Discharge Plan: Outpatient Follow Up Outpatient Program: [facility]
[2016-06-06] MEDS: QUEtiapine XR TAB* 300 MG PO SCH (20:26)
[2016-06-07] MEDS: Nicotine Inhaler* 10 MG AMP INH PRN ×6 (01:15→21:22)
[2016-06-07 08:37] LABS: EGFR African American 111.5 (>60); EGFR Non-African American 86.7 (>60); HDL Cholesterol 71.4 mg/dL
[2016-06-07] MEDS: Lithium Carbonate TAB* 300 MG PO SCH ×2 (09:12→21:22)
[2016-06-07] MEDS: Vitamin THERAPEUTIC TAB PO SCH (09:12)
--- NOTE | 2016-06-07 11:48 | PN ---
MHU: Group Therapy Note - Service Type Service Type: 52747 Group Psychotherapy - Cognitive Behavioral Group Therapy ( CBT):Patient was attentive and participatory in CBT programming this morning, and remained in good behavioral control. Patient expressed positive insights regarding relevant treatment interventions and goals.
[2016-06-07 13:07] LABS: Lithium 0.38 mmol/L (0.6-1.2)
[2016-06-07 13:11] LABS: TSH (Thyroid Stimulating Horm) 1.09 mcIU/mL (0.34-5.60)
--- NOTE | 2016-06-07 17:08 | PN ---
Subjective - Subjective Service Type: 51999 Hosp care 15 min low complexity Objective - Appearance Appearance: Well Developed/Nourished Dysmorphic Features: No Hygiene: Normal Grooming: Disheveled - Behavior Psychomotor Activities: Normal Exhibits Abnormal Movement: No - Attitude and Relatedness Attitude and Relatedness: Guarded Eye Contact: Good - Speech Quality: Unpressured Latencies: Normal Quantity: Appropriate - Mood Patient's Decription of Mood: "Okay" - Affect Observed Affect: Constricted Affect Consistent with: Euthymia - Thought Process Patient's Thought Process: Coherent, Goal Directed Thought Content: No Passive Wish, No Suicidal Planning, No Homicidal Ideation, No Paranoid Ideation - Sensorium Experiencing Hallucinations: No, Sensorium is Clear Type of Hallucinations: Visual: No, Auditory: No, Command: No - Level of Consciousness Level of Consciousness: Alert Orientation: Yes Intact, Yes Orientated to Time, Yes Orientated to Place, Yes Orientated to Person - Impulse Control Impulse Control: Intact - Insight and Judgement Insight and Judgement: Poor - Group Participation Particating in Group Activities: Yes Group Participation Comments: but still declines most - Medication Management Medication Management Adherence: Yes - since last evening Assessment - Assessment Merits Inpatient Hospitalization: For Immediate Safety, For Stabilization, For Ongoing Evaluation, For Discharge Planning, Pending Safe DC Plan Inpatient DSM-IV Dx: Unspecified psychotic disorder. Rule out Bipolar Disorder , Manic with psychotic features. Rule out Schizoaffective Disorder, bipolar type. Alcohol use disorder Clinical Impression: Assumed care day , 06.04.17: Zoe Rose is a 50 year-old man admitted for psychosis with out of control behavior in the community, trashing his apartment. He remained psychotic and assaultive on the unit, but in recent days has been in behavioral control and med compliant. We will continue to monitor for sufficient remission of psychosis to be safe for discharge. Day 5, 18.17: Zoe continues to present in a stylized way, but less so. He continues to deny any active psychiatric symptoms. He agrees to blood drqw tomorrow to check lithium level. Day , 06.06.17: Refused blood draw this morning. Continues to deny any active psychiatric symptoms, but with odd presentation raising concern about reliability of reports. Unable to contact mother or other collateral sources. Plan - Plan Treatment Plan: Name: ZOE ROSE Birthdate: 1965 [id number] Continue current meds. Check Li+, Cr, TSH tomorrow morning. Monitor MS and safety. Encourage groups and milieu. Gather collateral. Medications: Current Medications Acetaminophen (Tylenol Tab*) 650 mg PO Q4H PRN PRN Reason: PAIN or TEMP > 101 F Al Hydrox/Mg Hydrox/Simethicone (Maalox Plus*) 30 ml PO Q4H PRN PRN Reason: INDIGESTION Device (Nicotine Mouth Piece*) 1 each INH .[facility] Last Admin: 06/02/16 10:01 Dose: 1 each Haloperidol (Haldol Tab*) 5 mg PO Q6H PRN PRN Reason: AGITATION Last Admin: 06/02/16 09:41 Dose: 5 mg [place] Carbonate ([place] Carbonate Tab*) 600 mg PO BEDTIME [facility] Last Admin: 06/06/16 20:26 Dose: 600 mg [place] Carbonate ([place] Carbonate Tab*) 300 mg PO QAM [facility] Last Admin: 06/07/16 09:12 Dose: 300 mg Multivitamins (Theragran Tab*) 1 tab PO DAILY [facility] Last Admin: 06/07/16 09:12 Dose: 1 tab Nicotine (Nicotine Inhaler*) 10 mg INH Q2H PRN PRN Reason: CRAVING Last Admin: 06/07/16 15:12 Dose: 10 mg Quetiapine Fumarate (Seroquel Xr Tab*) 300 mg PO BEDTIME [facility] Last Admin: 06/06/16 20:26 Dose: 300 mg
--- NOTE | 2016-06-07 17:21 | PN ---
Subjective - Subjective Subjective: Zoe reports full remission of psychotic symptoms and dangerous intent and plan. He requests discharge. He complains that he has only had one night with 8 hours sleep here. He agrees to increased lithium dose. Objective - Appearance Appearance: Well Developed/Nourished Dysmorphic Features: No Hygiene: Normal Grooming: Disheveled - Behavior Psychomotor Activities: Normal Exhibits Abnormal Movement: No - Attitude and Relatedness Attitude and Relatedness: Somewhat dramatic Eye Contact: Good - Speech Quality: Unpressured Latencies: Normal Quantity: Appropriate - Mood Patient's Decription of Mood: "Excellent" - Affect Observed Affect: Expansive Affect Consistent with: Euthymia - Thought Process Patient's Thought Process: Coherent, Goal Directed Thought Content: No Passive Wish, No Suicidal Planning, No Homicidal Ideation, No Paranoid Ideation - Sensorium Experiencing Hallucinations: No, Sensorium is Clear Type of Hallucinations: Visual: No, Auditory: No, Command: No - Level of Consciousness Level of Consciousness: Alert Orientation: Yes Intact, Yes Orientated to Time, Yes Orientated to Place, Yes Orientated to Person - Impulse Control Impulse Control: Intact - Insight and Judgement Insight and Judgement: Poor - Group Participation Particating in Group Activities: Yes - Medication Management Medication Management Adherence: Yes Assessment - Assessment Merits Inpatient Hospitalization: For Stabilization, For Ongoing Evaluation, Consolidate Improvements, For Discharge Planning Inpatient DSM-IV Dx: Unspecified psychotic disorder. Rule out Bipolar Disorder , Manic with psychotic features. Rule out Schizoaffective Disorder, bipolar type. Alcohol use disorder Clinical Impression: Assumed care day 4, 17: Zoe Rose is a 50 year-old man admitted for psychosis with out of control behavior in the community, trashing his apartment. He remained psychotic and assaultive on the unit, but in recent days has been in behavioral control and med compliant. We will continue to monitor for sufficient remission of psychosis to be safe for discharge. Day 5, 06.05.17: Zoe continues to present in a stylized way, but less so. He continues to deny any active psychiatric symptoms. He agrees to blood drqw tomorrow to check lithium level. Day 6, 06.06.17: Refused blood draw this morning. Continues to deny any active psychiatric symptoms, but with odd presentation raising concern about reliability of reports. Unable to contact mother or other collateral sources. Day 7, 06.07.17: Allowed blood draw this morning. Cr and TSH WNL, with healthy lipid panel: Li+ low at 0.38. Reports feeling anxious due to confinement with poor sleep and request discharge. Plan - Plan Treatment Plan: Name: ZOE ROSE Birthdate: 1965 [id number] Continue current meds. Increase Li+ to 600 mg bid. Monitor MS and safety. Encourage groups and milieu. Team meeting with patient tomorrow. Medications: Current Medications Acetaminophen (Tylenol Tab*) 650 mg PO Q4H PRN PRN Reason: PAIN or TEMP > 101 F Al Hydrox/Mg Hydrox/Simethicone (Maalox Plus*) 30 ml PO Q4H PRN PRN Reason: INDIGESTION Device (Nicotine Mouth Piece*) 1 each INH .[facility] Last Admin: 06/02/16 10:01 Dose: 1 each Haloperidol (Haldol Tab*) 5 mg PO Q6H PRN PRN Reason: AGITATION Last Admin: 06/02/16 09:41 Dose: 5 mg [place] Carbonate ([place] Carbonate Tab*) 600 mg PO BEDTIME [facility] Last Admin: 06/06/16 20:26 Dose: 600 mg [place] Carbonate ([place] Carbonate Tab*) 300 mg PO QAM [facility] Last Admin: 06/07/16 09:12 Dose: 300 mg Multivitamins (Theragran Tab*) 1 tab PO DAILY [facility] Last Admin: 06/07/16 09:12 Dose: 1 tab Nicotine (Nicotine Inhaler*) 10 mg INH Q2H PRN PRN Reason: CRAVING Last Admin: 06/07/16 15:12 Dose: 10 mg Quetiapine Fumarate (Seroquel Xr Tab*) 300 mg PO BEDTIME [facility] Last Admin: 06/06/16 20:26 Dose: 300 mg - Discharge Plan Discharge Plan: Outpatient Follow Up
[2016-06-07] MEDS: QUEtiapine XR TAB* 300 MG PO SCH (21:22)
[2016-06-08] MEDS: Nicotine Inhaler* 10 MG AMP INH PRN ×4 (00:29→19:57)
[2016-06-08] MEDS: Vitamin THERAPEUTIC TAB PO SCH (09:21)
[2016-06-08] MEDS: Haloperidol TAB* 5 MG PO PRN (09:21)
[2016-06-08] MEDS: Lithium Carbonate TAB* 300 MG PO SCH ×2 (09:21→19:58)
--- NOTE | 2016-06-08 11:17 | PN ---
MHU: Group Therapy Note - Service Type Service Type: [id number] Group Psychotherapy - Cognitive Behavioral Group Therapy ( CBT):Patient was attentive and participatory in CBT programming this morning, and remained in good behavioral control. Patient expressed positive insights regarding relevant treatment interventions and goals.
[2016-06-08] MEDS: QUEtiapine XR TAB* 300 MG PO SCH (19:58)
[2016-06-09] MEDS: Nicotine Inhaler* 10 MG AMP INH PRN ×5 (07:52→22:55)
[2016-06-09] MEDS: Lithium Carbonate TAB* 300 MG PO SCH ×2 (08:28→20:22)
[2016-06-09] MEDS: Vitamin THERAPEUTIC TAB PO SCH (08:29)
--- NOTE | 2016-06-09 15:59 | PN ---
Subjective - Subjective Service Type: 28448 Hosp care 15 min low complexity Subjective: Zoe reports good sleep, with 6 hours overnight, and 4 during the day. He continues to give a dramatized mental status report, for example that his "delusions are fleeing into the shadows". He is edgy. Family has called the unit with concerns about safety on the unit, as he sounds to them as bad as he has ever been and has a history of violence, this via Sarah. Objective - Appearance Appearance: Well Developed/Nourished Dysmorphic Features: No Hygiene: Normal Grooming: Disheveled - Behavior Psychomotor Activities: Abnormal-Increased Exhibits Abnormal Movement: No - Attitude and Relatedness Attitude and Relatedness: Superficially Cooperative Eye Contact: Good - with waves of overintensity - Speech Quality: Pressured - mildly Latencies: Normal Quantity: Copious - Mood Patient's Decription of Mood: "Real good man! I'm ready to get out of here." - Affect Observed Affect: Constricted Affect Consistent with: Euthymia - with signs of irritabity in high frequency shifts of postural and facial expression of mood - Thought Process Patient's Thought Process: Coherent, Goal Directed Thought Content: No Passive Wish, No Suicidal Planning, No Homicidal Ideation, No Paranoid Ideation - denied, but high suspicion there but unreported given outbursts recently - Sensorium Experiencing Hallucinations: No, Sensorium is Clear Type of Hallucinations: Visual: No, Auditory: No, Command: No - Level of Consciousness Level of Consciousness: Alert Orientation: Yes Intact, Yes Orientated to Time, Yes Orientated to Place, Yes Orientated to Person - Impulse Control Impulse Control: Tenuous - Insight and Judgement Insight and Judgement: Poor - Group Participation Particating in Group Activities: Yes - Medication Management Medication Management Adherence: Yes Assessment - Assessment Merits Inpatient Hospitalization: For Immediate Safety, For Stabilization, For Ongoing Evaluation, For Discharge Planning, Pending Safe DC Plan Inpatient DSM-IV Dx: Unspecified psychotic disorder. Rule out Bipolar Disorder , Manic with psychotic features. Rule out Schizoaffective Disorder, bipolar type. Alcohol use disorder Clinical Impression: [facility] care day 4, 17: Zoe Rose is a 50 year-old man admitted for psychosis with out of control behavior in the community, trashing his apartment. He remained psychotic and assaultive on the unit, but in recent days has been in behavioral control and med compliant. We will continue to monitor for sufficient remission of psychosis to be safe for discharge. Day , 17: Zoe continues to present in a stylized way, but less so. He continues to deny any active psychiatric symptoms. He agrees to blood drqw tomorrow to check lithium level. Day 06.06.17: Refused blood draw this morning. Continues to deny any active psychiatric symptoms, but with odd presentation raising concern about reliability of reports. Unable to contact mother or other collateral sources. Day , 17: Allowed blood draw this morning. Cr and TSH WNL, with healthy lipid panel: Li+ low at 0.38. Reports feeling anxious due to confinement with poor sleep and request discharge. Day 06.09.16: Zoe continues to give dramatized reports. Family is concerned that he may be violent on the unit: staff made aware. He continues to ask for discharge saying he is well. Plan - Plan Treatment Plan: Name: ZOE ROSE Birthdate: 1965 [id number] Continue current meds. Check Li+ level again saturday. Monitor MS and safety. Encourage groups and milieu. Medications: Current Medications Acetaminophen (Tylenol Tab*) 650 mg PO Q4H PRN PRN Reason: PAIN or TEMP > 101 F Al Hydrox/Mg Hydrox/Simethicone (Maalox Plus*) 30 ml PO Q4H PRN PRN Reason: INDIGESTION Device (Nicotine Mouth Piece*) 1 each INH .[facility] Last Admin: 06/02/16 10:01 Dose: 1 each Haloperidol (Haldol Tab*) 5 mg PO Q6H PRN PRN Reason: AGITATION Last Admin: 06/08/16 09:21 Dose: 5 mg [place] Carbonate ([place] Carbonate Tab*) 600 mg PO BID [facility] Last Admin: 06/09/16 08:28 Dose: 600 mg Multivitamins (Theragran Tab*) 1 tab PO DAILY [facility] Last Admin: 06/09/16 08:29 Dose: 1 tab Nicotine (Nicotine Inhaler*) 10 mg INH Q2H PRN PRN Reason: CRAVING Last Admin: 06/09/16 14:34 Dose: 10 mg Quetiapine Fumarate (Seroquel Xr Tab*) 300 mg PO BEDTIME [facility] Last Admin: 06/08/16 19:58 Dose: 300 mg - Discharge Plan Discharge Plan: Consider Longer Term Tx
[2016-06-09] MEDS: QUEtiapine XR TAB* 300 MG PO SCH (20:22)
[2016-06-10] MEDS: Lithium Carbonate TAB* 300 MG PO SCH ×2 (08:37→21:10)
[2016-06-10] MEDS: Vitamin THERAPEUTIC TAB PO SCH (08:42)
[2016-06-10] MEDS: Nicotine Inhaler* 10 MG AMP INH PRN ×3 (12:24→21:11)
[2016-06-10] MEDS: QUEtiapine XR TAB* 300 MG PO SCH (21:10)
[2016-06-11] MEDS: Nicotine Inhaler* 10 MG AMP INH PRN ×5 (00:04→22:47)
[2016-06-11] MEDS: Lithium Carbonate TAB* 300 MG PO SCH ×2 (08:21→20:41)
[2016-06-11] MEDS: Vitamin THERAPEUTIC TAB PO SCH (08:22)
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
[2016-06-11] MEDS: OLANzapine TAB*ODT* 10 MG TAB PO SCH (20:41)
[2016-06-11] MEDS ORDERED: QUEtiapine XR TAB* 200 MG PO SCH (21:00)
[2016-06-12] MEDS: Lithium Carbonate TAB* 300 MG PO SCH ×2 (08:54→22:31)
[2016-06-12] MEDS: Vitamin THERAPEUTIC TAB PO SCH (08:54)
[2016-06-12] MEDS: Nicotine Inhaler* 10 MG AMP INH PRN ×3 (08:55→19:08)
[2016-06-12] MEDS: OLANzapine TAB*ODT* 10 MG TAB PO SCH (22:06)
[2016-06-13] MEDS: Nicotine Inhaler* 10 MG AMP INH PRN ×3 (04:54→18:20)
[2016-06-13] MEDS: Lithium Carbonate TAB* 300 MG PO SCH ×2 (08:43→20:33)
[2016-06-13] MEDS: Vitamin THERAPEUTIC TAB PO SCH (08:43)
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
--- NOTE | 2016-06-13 14:08 | PN ---
[facility]: Group Therapy Note - Service Type Service Type: [id number] Group Psychotherapy - Cognitive Behavioral Group Therapy ( CBT):Patient was attentive and participatory in CBT programming this morning, and remained in good behavioral control. Patient expressed positive insights regarding relevant treatment interventions and goals.
[2016-06-13] MEDS: OLANzapine TAB*ODT* 10 MG TAB PO SCH (20:33)
[2016-06-14] MEDS: Lithium Carbonate TAB* 300 MG PO SCH ×2 (08:01→20:22)
[2016-06-14] MEDS: Vitamin THERAPEUTIC TAB PO SCH (08:01)
[2016-06-14] MEDS: Nicotine Inhaler* 10 MG AMP INH PRN ×2 (16:33→20:49)
[2016-06-14] MEDS: OLANzapine TAB*ODT* 10 MG TAB PO SCH (20:22)
[2016-06-15] MEDS: Lithium Carbonate TAB* 300 MG PO SCH ×2 (07:36→20:19)
[2016-06-15] MEDS: Vitamin THERAPEUTIC TAB PO SCH (07:36)
[2016-06-15] MEDS: Nicotine Inhaler* 10 MG AMP INH PRN ×2 (07:37→14:05)
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
[2016-06-15] MEDS: OLANzapine TAB*ODT* 10 MG TAB PO SCH (20:19)
[2016-06-16] MEDS: Nicotine Inhaler* 10 MG AMP INH PRN ×3 (08:23→20:25)
[2016-06-16] MEDS: Lithium Carbonate TAB* 300 MG PO SCH ×2 (08:23→20:23)
[2016-06-16] MEDS: Vitamin THERAPEUTIC TAB PO SCH (08:24)
[2016-06-16] MEDS: OLANzapine TAB*ODT* 10 MG TAB PO SCH (20:26)
[2016-06-17] MEDS: Vitamin THERAPEUTIC TAB PO SCH (08:38)
[2016-06-17] MEDS: Nicotine Inhaler* 10 MG AMP INH PRN ×3 (08:40→20:15)
[2016-06-17] MEDS: Lithium Carbonate TAB* 300 MG PO SCH ×2 (08:41→20:12)
[2016-06-17] MEDS: OLANzapine TAB*ODT* 10 MG TAB PO SCH (20:12)
[2016-06-18] MEDS: Nicotine Inhaler* 10 MG AMP INH PRN ×4 (08:08→20:53)
[2016-06-18] MEDS: Lithium Carbonate TAB* 300 MG PO SCH ×2 (08:09→20:50)
[2016-06-18] MEDS: Vitamin THERAPEUTIC TAB PO SCH (08:09)
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
[2016-06-18] MEDS: OLANzapine TAB*ODT* 10 MG TAB PO SCH (20:50)
[2016-06-19 08:02] VITALS: BP 127/74
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
[2016-06-19] MEDS: Lithium Carbonate TAB* 300 MG PO SCH (08:53)
[2016-06-19] MEDS: Vitamin THERAPEUTIC TAB PO SCH (08:53)
== END 2016-06-19 09:30 | DRG 885 ==
LOC: ED 14:05 → BSU 06-01 02:04
PROVIDERS: ADMIT Psychiatry & Neurology Psychiatry; ATTEND Psychiatry & Neurology Psychiatry
DX: F31.2 Bipolar disorder, current episode manic severe with psychotic features (principal); F10.129 Alcohol abuse with intoxication, unspecified; Y90.6 Blood alcohol level of 120-199 mg/100 ml; F17.210 Nicotine dependence, cigarettes, uncomplicated; Z81.8 Family history of other mental and behavioral disorders
CPT/HCPCS: 36415; 80053; 80061; 80178; 80307; 80320; 80329; 81003; 81015; 82565; 84443; 85025; 90853; 99222; 99231; 99238; A9270-GY; G0480; J1200; J1630; J2060